=== PATIENT | female | born 1975 | race Two or more races ===

== ENCOUNTER 2024-01-12 12:11 | Inpatient (IN) | payer MEDICAID ==
[2024-01-12] VITALS (10 sets, daily range): BP systolic 116–136; BP diastolic 57–69; PULSE 92–100; RESP 16–18; TEMP 98.4–99.3; O2SAT 100
[~2024-01-12] VITALS: Ht 151.1 cm; Wt 52.0 kg
[2024-01-12 13:55] LABS: ALANINE AMINOTRANSFERASE 16 U/L (12-78); ALBUMIN 3.8 G/DL (3.4-5.0); ALBUMIN/GLOBULIN RATIO 0.8 (1.1-1.5); ALKALINE PHOSPHATASE 91 IU/L (46-116); ANION GAP 12 (8-16); ASPARTATE AMINO TRANSFERASE 14 U/L (10-37); BILIRUBIN,TOTAL 0.3 MG/DL (0.1-1.0); BLOOD UREA NITROGEN 9 MG/DL (7-18); BUN/CREATININE RATIO 18.8 (10.0-20.0); CALCIUM 8.5 MG/DL (8.5-10.1); CHLORIDE 105 MMOL/L (99-107); CREATININE 0.48 MG/DL (0.40-0.90); GLUCOSE 131 MG/DL (70-104); POTASSIUM 3.5 MMOL/L (3.5-5.1); SODIUM 140 MMOL/L (135-145); TOTAL CARBON DIOXIDE 23.3 MMOL/L (24-32); TOTAL PROTEIN 8.8 G/DL (6.4-8.2); eCRCL 100 ML/MIN; eGFR > 90 ML/MIN
[2024-01-12 14:37] LABS: BASOPHILS # (AUTO) 0.1 X10'3 (0-0.2); BASOPHILS % (AUTO) 1.1 % (0-1); EOSINOPHILS % (AUTO) 0.2 % (0-6); LYMPHOCYTES % (AUTO) 41.3 % (21-51); MEAN CORPUSCULAR HEMOGLOBIN 15.4 PG (27.0-31.0); MEAN CORPUSCULAR HGB CONC 27.1 g/dL (33.0-36.5); MEAN CORPUSCULAR VOLUME 56.9 FL (78-98); MEAN PLATELET VOLUME 8.4 FL (7.4-10.4); MONOCYTES # (AUTO) 0.3 X10'3 (0-0.9); MONOCYTES % (AUTO) 5.5 % (2-12); NEUTROPHILS # (AUTO) 2.6 X10'3 (1.8-7.7); NEUTROPHILS % (AUTO) 51.9 % (42-75); PLATELET COUNT 218 X10'3 (140-440); RED BLOOD COUNT 3.03 X10'6 (4.20-5.60); RED CELL DISTRIBUTION WIDTH 22.3 % (11.5-14.5)
[2024-01-12 14:46] LABS: HEMATOCRIT 17.5 % (35.0-45.0)
[2024-01-12 14:50] LABS: ANISOCYTOSIS 3+; HYPOCHROMASIA 3+; MICROCYTOSIS 3+; TOTAL CELLS COUNTED 100
[2024-01-12 14:51] LABS: ELLIPTOCYTES FEW; POIKILOCYTOSIS 1+; TEAR DROP CELLS FEW
[2024-01-12 14:52] LABS: PLATELET ESTIMATE NORMAL
[2024-01-12 16:18] LABS: OCCULT BLOOD STOOL NEGATIVE (Neg)
[2024-01-12] MEDS ORDERED: magnesium 4gm in 100ml NS 100 ML IV PRN (16:20)
[2024-01-12] MEDS ORDERED: potassium Cl 20 mEq SR tablet PO PRN ×2 (16:20)
[2024-01-12] MEDS ORDERED: mag hydrox/Alum hydrox/simeth 30ml oral suspension PO PRN (16:20)
[2024-01-12] MEDS ORDERED: magnesium hydroxide 30ml (MOM) UD suspension PO PRN (16:20)
[2024-01-12] MEDS ORDERED: potassium Cl 40MEQ/1/2NS 520ml 520 ML IV PRN (16:20)
[2024-01-12] MEDS ORDERED: magnesium Cl slow-release 64mg tablet PO PRN (16:20)
[2024-01-12] MEDS ORDERED: acetaminophen 325mg tablet PO PRN (16:20)
[2024-01-12] MEDS ORDERED: ondansetron/PF 4mg/2ml inj IV PRN (16:20)
[2024-01-12] MEDS ORDERED: magnesium 2GM in 50ml NS 50 ML IV PRN (16:20)
[2024-01-12] MEDS ORDERED: NO HOME MEDS (16:58)
[2024-01-12 17:14] LABS: RED BLOOD COUNT 2.98 X10'6 (4.20-5.60); RETICULOCYTE % (AUTO) 1.5 % (0.5-1.5)
[2024-01-12 17:15] LABS: IRON 7 UG/DL (49-151)
[2024-01-12 17:18] LABS: APTT 22 SECONDS (22-32); PROTHROMBIN TIME 10.7 SECONDS (9.0-12.0)
[2024-01-12 17:32] LABS: FREE T4 (FREE THYROXINE) 0.92 NG/DL (0.73-1.40); LACTATE DEHYDROGENASE 128 U/L (81-234); THYROID STIMULATING HORMONE 4.35 ulU/ml (0.34-4.50)
[2024-01-12 17:33] LABS: C-REACTIVE PROTEIN < 0.05 MG/DL (0.0-0.5); FERRITIN < 1 NG/ML (8-252)
[2024-01-12 17:44] LABS: HEMOGLOBIN A1C 5.6 % (4.5-6.2)
[2024-01-12] MEDS: PEG 3350/Na sulf,bicarb,Cl/KCl oral sol 4 liter bottle PO ONE (19:32)
[2024-01-12] MEDS: K and/or MAG REPLACEMENT MC SCH (20:00)
[2024-01-12] MEDS: docusate sod 100mg capsule PO SCH (20:00)
[2024-01-12 22:46] LABS: URINE HCG NEGATIVE (NEG)
[2024-01-12 23:27] LABS: HEMATOCRIT 26.4 % (35.0-45.0); MEAN CORPUSCULAR HGB CONC 30.3 g/dL (33.0-36.5); MEAN CORPUSCULAR VOLUME 66.1 FL (78-98); MEAN PLATELET VOLUME 8.7 FL (7.4-10.4); PLATELET COUNT 189 X10'3 (140-440); RED CELL DISTRIBUTION WIDTH 30.8 % (11.5-14.5); WHITE BLOOD COUNT 7.3 X10'3 (4.5-11.0)
[2024-01-13] VITALS (8 sets, daily range): BP systolic 106–127; BP diastolic 54–73; PULSE 83–112; RESP 14–21; TEMP 98.1–98.8; O2SAT 98–100
[2024-01-13 00:41] LABS: TOTAL CELLS COUNTED 100
[2024-01-13 00:50] LABS: ANISOCYTOSIS 3+; HYPOCHROMASIA 2+; MICROCYTOSIS 2+; PLATELET ESTIMATE NORMAL; POIKILOCYTOSIS 1+
[2024-01-13 00:54] LABS: ELLIPTOCYTES FEW; SCHISTOCYTES FEW; TEAR DROP CELLS FEW
[2024-01-13 07:33] LABS: BASOPHILS # (AUTO) 0.1 X10'3 (0-0.2); BASOPHILS % (AUTO) 0.8 % (0-1); EOSINOPHILS % (AUTO) 0.1 % (0-6); HEMATOCRIT 24.8 % (35.0-45.0); HEMOGLOBIN 7.5 g/dl (12.0-16.0); LYMPHOCYTES # (AUTO) 1.7 X10'3 (1.1-4.8); LYMPHOCYTES % (AUTO) 22.4 % (21-51); MEAN CORPUSCULAR HEMOGLOBIN 19.9 PG (27.0-31.0); MEAN CORPUSCULAR HGB CONC 30.3 g/dL (33.0-36.5); MEAN CORPUSCULAR VOLUME 65.5 FL (78-98); MEAN PLATELET VOLUME 8.7 FL (7.4-10.4); MONOCYTES # (AUTO) 0.7 X10'3 (0-0.9); MONOCYTES % (AUTO) 8.6 % (2-12); NEUTROPHILS # (AUTO) 5.3 X10'3 (1.8-7.7); NEUTROPHILS % (AUTO) 68.1 % (42-75); PLATELET COUNT 187 X10'3 (140-440); RED BLOOD COUNT 3.79 X10'6 (4.20-5.60); RED CELL DISTRIBUTION WIDTH 29.7 % (11.5-14.5); WHITE BLOOD COUNT 7.8 X10'3 (4.5-11.0)
[2024-01-13 07:57] LABS: ANISOCYTOSIS 3+; ELLIPTOCYTES FEW; HYPOCHROMASIA 1+; MICROCYTOSIS 2+; PLATELET ESTIMATE NORMAL; SCHISTOCYTES FEW; TEAR DROP CELLS FEW
[2024-01-13 09:05] LABS: ALANINE AMINOTRANSFERASE 12 U/L (12-78); ALBUMIN 3.5 G/DL (3.4-5.0); ALBUMIN/GLOBULIN RATIO 0.8 (1.1-1.5); ALKALINE PHOSPHATASE 85 IU/L (46-116); ANION GAP 14 (8-16); ASPARTATE AMINO TRANSFERASE 12 U/L (10-37); BLOOD UREA NITROGEN 5 MG/DL (7-18); BUN/CREATININE RATIO 10.6 (10.0-20.0); CALCIUM 8.7 MG/DL (8.5-10.1); CHLORIDE 110 MMOL/L (99-107); CHOL/HDL RATIO 4.5 (0.00-4.99); CHOLESTEROL 139 MG/DL (0-200); CREATININE 0.47 MG/DL (0.40-0.90); GLUCOSE 95 MG/DL (70-104); HDL CHOLESTEROL 31 MG/DL (35-60); LDL CHOLESTEROL 95 MG/DL (50-100); PHOSPHORUS 2.9 MG/DL (2.3-4.5); POTASSIUM 3.5 MMOL/L (3.5-5.1); SODIUM 144 MMOL/L (135-145); TOTAL CARBON DIOXIDE 20.3 MMOL/L (24-32); TRIGLYCERIDES 54 MG/DL (20-135); eCRCL 102 ML/MIN; eGFR > 90 ML/MIN
[2024-01-13] MEDS ORDERED: MIDAZolam 1 MG/ML 5ML VIAL ONE (09:23)
[2024-01-13] MEDS ORDERED: fentaNYL/PF 50MCG/1 ML 2ML syringe ONE (09:23)
[2024-01-13] MEDS ORDERED: LIDOcaine 2% Viscous 15ml cup ONE (09:23)
[2024-01-13] MEDS ORDERED: FOLI0.4T6 PO (11:56)
[2024-01-13] MEDS ORDERED: MULT-25 PO (11:56)
[2024-01-13] MEDS ORDERED: FERR324T4 PO ×2 (11:56→14:05)
[2024-01-13] MEDS ORDERED: LACT1CAP60 PO (11:56)
[2024-01-13] MEDS ORDERED: PEG 3350/Na sulf,bicarb,Cl/KCl oral sol 4 liter bottle PO ONE (12:00)
[2024-01-13] MEDS ORDERED: ASCO-134 PO (14:05)
[2024-01-13] MEDS ORDERED: PANT40TA54 PO (14:05)
[2024-01-16 12:21] LABS: T-TRANSGLUTAMINASE IGA 2 U/mL (0-3)
[2024-01-17 07:49] LABS: ENDOMYSIAL ANTIBODY IGA Negative (Negative)
== END 2024-01-13 15:20 | disposition home or self-care (01) | DRG 663 ==
LOC: ER 12:11 → ED HOLD 16:26 → PCU 3S 23:25
PROVIDERS: ADMIT Family Medicine; ATTEND Family Medicine
PROC: 30233N1 Transfusion of Nonautologous Red Blood Cells into Peripheral Vein, Percutaneous Approach (ICD-10-PCS; 2024-01-12)
PROC: 0DB98ZX Excision of Duodenum, Via Natural or Artificial Opening Endoscopic, Diagnostic (ICD-10-PCS; 2024-01-12)
PROC: 0DJD8ZZ Inspection of Lower Intestinal Tract, Via Natural or Artificial Opening Endoscopic (ICD-10-PCS; principal; 2024-01-13)
PROC: 0DB78ZX Excision of Stomach, Pylorus, Via Natural or Artificial Opening Endoscopic, Diagnostic (ICD-10-PCS; 2024-01-13)
DX: D50.8 Other iron deficiency anemias (principal); D89.2 Hypergammaglobulinemia, unspecified; R73.9 Hyperglycemia, unspecified
CPT/HCPCS: 36415; 36430; 43239; 45378; 80053; 80061; 81025; 82272; 82728; 83010; 83036; 83540; 83615; 83735; 84100; 84439; 84443; 85007; 85008; 85025; 85045; 85610; 85651; 85730; 86140; 86255; 86885; 86900; 86901; 86920; 87081; 99152; 99153; 99285; A4620; G0378; J2250; J3010; J7030; J7040; P9016